=== PATIENT | male | born 1950 | race Caucasian/White ===

== ENCOUNTER 2016-09-29 13:31 | Emergency (ER) | payer MEDICARE ==
[2016-09-29] MEDS ORDERED: ONDANSETRON 4 MG VIAL ONE (14:56)
[2016-09-29] MEDS ORDERED: SODIUM CHLORIDE 0.9% 1,000 ML ONE (14:57)
== END 2016-09-29 18:35 | disposition home or self-care (01) ==
LOC: ER 13:31
DX: R19.7 Diarrhea, unspecified (principal); K64.4 Residual hemorrhoidal skin tags
CPT/HCPCS: 36415; 80053; 81003; 83630; 83690; 83880; 85025; 87045; 87046; 87177; 87493; 96361; 96374; 99283; J2405